=== PATIENT | male | born 1975 | race African-American/Black ===

== ENCOUNTER 2016-08-12 06:35 | Emergency (ER) | payer OTHER ==
[~2016-08-12] VITALS: Ht 180.3 cm; Wt 98.2 kg
[~2016-08-12 06:35] MED LIST: AMITRIPTYLINE H10 MG PO; ATARAX,VISTARIL25 MG PO; AZITHROMYCIN250 MG1 PO; BACTRIM,SEPT1 TABLET PO; COUMADIN; COUMADIN,JANTOVE5 MG PO; Combivent IH; Cymbalta PO; Dilaudid PO; ENDOCET; ENDOCET 5-3251 EACH PO; FOLIC ACID; FOLIC ACID1 MG PO; HABITROL,NICODER7 MG TD; HYDROMORPHONE HC2 MG; Habitrol,Nicoderm CQ TD; LEVOFLOXACIN750 MG; Levaquin PO; MOTRIN800 MG PO; Motrin PO; NOHOMEMEDS; OPANA ER20 MG; OPANA ER40 MG PO; OXYCODONE HCL15 MG PO; OXYCODONE-ACET1 EACH; OXYMORPHONE HCL40 MG PO; PERCOCET; PERCOCET 5/31 TABLET PO; PRAMOSONE 1%28.4 G1 TP; PROVENTIL,2.5 MG/3 M IH; PROVENTIL,200 INHALA; PULMICORT0.5 MG/21 IH; PULMOZYME2.5 MG/2.5 IH; Proventil,Ventolin H IH; Tylenol Regular Stre PO; ULTRAM
[2016-08-12] MEDS ORDERED: VIBRAMYCIN100 MG PO (06:55)
[2016-08-12 07:14] VITALS: BP 120/81
== END 2016-08-12 07:21 | disposition home or self-care (01) ==
LOC: EME 06:35
DX: S00.01XA Abrasion of scalp, initial encounter (principal); I88.9 Nonspecific lymphadenitis, unspecified; D57.1 Sickle-cell disease without crisis; Z86.711 Personal history of pulmonary embolism; F17.200 Nicotine dependence, unspecified, uncomplicated
CPT/HCPCS: 99281; 99283

== ENCOUNTER 2016-09-10 10:23 | Emergency (ER) | payer OTHER ==
[~2016-09-10] VITALS: Ht 181.6 cm; Wt 98.3 kg
[~2016-09-10 10:23] MED LIST changes: +VIBRAMYCIN100 MG PO
[2016-09-10 12:49] VITALS: BP 112/68
== END 2016-09-10 12:50 | disposition home or self-care (01) ==
LOC: EME 10:23
DX: D57.1 Sickle-cell disease without crisis (principal); N48.32 Priapism due to disease classified elsewhere; G89.29 Other chronic pain; Z86.711 Personal history of pulmonary embolism; F17.200 Nicotine dependence, unspecified, uncomplicated
CPT/HCPCS: 99281; 99284; J3010

== ENCOUNTER 2016-09-20 11:11 | Emergency (ER) | payer OTHER ==
[~2016-09-20] VITALS: Ht 180.3 cm; Wt 97.4 kg
[2016-09-20 11:40] VITALS: BP 133/83
== END 2016-09-20 13:04 | disposition home or self-care (01) ==
LOC: EME 11:11
DX: D57.1 Sickle-cell disease without crisis (principal); N48.32 Priapism due to disease classified elsewhere; G89.29 Other chronic pain; Z86.711 Personal history of pulmonary embolism; F17.200 Nicotine dependence, unspecified, uncomplicated
CPT/HCPCS: 99281; 99284; J1170

== ENCOUNTER 2016-09-22 13:20 | Emergency (ER) | payer OTHER ==
[~2016-09-22] VITALS: Ht 180.3 cm; Wt 99.2 kg
[2016-09-22 16:31] VITALS: BP 134/92
== END 2016-09-22 16:32 | disposition home or self-care (01) ==
LOC: EME 13:20
DX: D57.1 Sickle-cell disease without crisis (principal); N48.32 Priapism due to disease classified elsewhere; G89.29 Other chronic pain; Z86.711 Personal history of pulmonary embolism; F17.200 Nicotine dependence, unspecified, uncomplicated
CPT/HCPCS: 99281; 99284; J1170

== ENCOUNTER 2016-09-28 07:49 | Emergency (ER) | payer OTHER ==
[~2016-09-28] VITALS: Ht 180.3 cm; Wt 99.1 kg
[2016-09-28] MEDS ORDERED: OXYCODONE HCL30 MG PO (08:35)
[2016-09-28 09:47] VITALS: BP 132/82
== END 2016-09-28 09:40 | disposition home or self-care (01) ==
LOC: EME 07:49
DX: D57.00 Hb-SS disease with crisis, unspecified (principal); N48.32 Priapism due to disease classified elsewhere; G89.29 Other chronic pain; F17.200 Nicotine dependence, unspecified, uncomplicated; Z71.6 Tobacco abuse counseling; Z79.01 Long term (current) use of anticoagulants; Z88.6 Allergy status to analgesic agent
CPT/HCPCS: 99281; 99283; J1170

== ENCOUNTER 2016-10-20 12:41 | Emergency (ER) | payer OTHER ==
[~2016-10-20] VITALS: Ht 180.3 cm; Wt 98.2 kg
[~2016-10-20 12:41] MED LIST changes: +OXYCODONE HCL30 MG PO
[2016-10-20 14:51] VITALS: BP 130/80
== END 2016-10-20 14:52 | disposition home or self-care (01) ==
LOC: EME 12:41
DX: D57.1 Sickle-cell disease without crisis (principal); N48.32 Priapism due to disease classified elsewhere; G89.29 Other chronic pain; Z79.891 Long term (current) use of opiate analgesic; Z86.711 Personal history of pulmonary embolism; F17.200 Nicotine dependence, unspecified, uncomplicated
CPT/HCPCS: 99281; 99284; J1170

== ENCOUNTER 2016-10-30 06:11 | Emergency (ER) | payer OTHER ==
[~2016-10-30] VITALS: Ht 180.3 cm; Wt 98.9 kg
[2016-10-30 07:29] VITALS: BP 130/85
== END 2016-10-30 07:30 | disposition home or self-care (01) ==
LOC: EME 06:11
DX: D57.1 Sickle-cell disease without crisis (principal); N48.32 Priapism due to disease classified elsewhere; Z86.711 Personal history of pulmonary embolism; F17.200 Nicotine dependence, unspecified, uncomplicated
CPT/HCPCS: 99281; 99284; J1170

== ENCOUNTER 2016-11-06 07:27 | Emergency (ER) | payer OTHER ==
[~2016-11-06] VITALS: Ht 180.3 cm; Wt 97.2 kg
[2016-11-06 08:58] VITALS: BP 131/87
== END 2016-11-06 09:03 | disposition home or self-care (01) ==
LOC: EME 07:27
DX: D57.1 Sickle-cell disease without crisis (principal); N48.32 Priapism due to disease classified elsewhere; Z86.711 Personal history of pulmonary embolism; F17.200 Nicotine dependence, unspecified, uncomplicated
CPT/HCPCS: 99281; 99283; J1170

== ENCOUNTER 2016-11-07 06:03 | Emergency (ER) | payer OTHER ==
[~2016-11-07] VITALS: Ht 180.3 cm; Wt 98.2 kg
[2016-11-07 08:10] VITALS: BP 135/77
== END 2016-11-07 08:11 | disposition home or self-care (01) ==
LOC: EME 06:03
PROC: 3E0N3GC Introduction of Other Therapeutic Substance into Male Reproductive, Percutaneous Approach (ICD-10-PCS; principal; 2016-11-07)
DX: N48.30 Priapism, unspecified (principal); D57.00 Hb-SS disease with crisis, unspecified; Z90.49 Acquired absence of other specified parts of digestive tract; Z86.711 Personal history of pulmonary embolism; F17.200 Nicotine dependence, unspecified, uncomplicated
CPT/HCPCS: 99281; 99283; J1170

== ENCOUNTER 2016-11-16 14:16 | Emergency (ER) | payer OTHER ==
[~2016-11-16] VITALS: Ht 180.3 cm; Wt 96.4 kg
[2016-11-16 15:03] LABS: BASOPHIL COUNT 0.1 K/uL (0-0.1); EOSINOPHIL (%) 4.8 % (0-5); EOSINOPHIL COUNT 0.6 K/uL (0-0.3); HEMATOCRIT 35.1 % (38.0-50.0); IMM.RETIC FRACTION 30.1 % (3-19); IMMATURE GRANULOCYTE (%) 0.5 % (0.0-0.7); IMMATURE GRANULOCYTE COUNT 0.1 K/uL; INSTRUMENT ABS NEUTROPHIL CT 6.7 K/uL; LYMPHOCYTE COUNT 2.5 K/uL (1.0-2.8); MCHC 38.2 G/DL (30.0-36.0); MCV 86.5 FL (86-99); MEAN PLAT.VOLUME 9.4 uM^3 (9.0-12.4); MONOCYTE (%) 16.3 % (3-12); NEUTROPHIL (%) 56.4 % (45-76); NEUTROPHIL COUNT 6.7 K/uL (1.8-6.4); NRBC (%) 0.8 /100 WBC (0-0); PLATELET COUNT 346 K/uL (156-360); RBC DIS.WIDTH-CV 13.5 % (11.8-14.6); RBC DIS.WIDTH-SD 42.5 % (39-53); RED BLOOD COUNT 4.06 M/uL (4.00-5.50); RETIC HGB EQUIVALENT 36.2 (28-36); RETICULOCYTE COUNT 4.1 % (0.5-1.8); WHITE BLOOD COUNT 11.9 K/uL (4.1-10.2)
[2016-11-16 16:24] VITALS: BP 116/74
== END 2016-11-16 16:25 | disposition home or self-care (01) ==
LOC: EME 14:16
PROVIDERS: Physician Assistant
DX: D57.00 Hb-SS disease with crisis, unspecified (principal); N48.32 Priapism due to disease classified elsewhere; F17.200 Nicotine dependence, unspecified, uncomplicated
CPT/HCPCS: 85025; 85045; 99281; 99284; J1170

== ENCOUNTER 2016-11-27 05:19 | Emergency (ER) | payer OTHER ==
[~2016-11-27] VITALS: Ht 180.3 cm; Wt 98.3 kg
[2016-11-27 07:49] VITALS: BP 140/83
== END 2016-11-27 07:50 | disposition home or self-care (01) ==
LOC: EME 05:19
PROC: 0V9SXZZ Drainage of Penis, External Approach (ICD-10-PCS; principal; 2016-11-27)
DX: D57.1 Sickle-cell disease without crisis (principal); N48.32 Priapism due to disease classified elsewhere; F17.200 Nicotine dependence, unspecified, uncomplicated; Z90.49 Acquired absence of other specified parts of digestive tract
CPT/HCPCS: 99281; 99284; J1170

== ENCOUNTER 2016-12-03 10:10 | Emergency (ER) | payer OTHER ==
[~2016-12-03] VITALS: Ht 180.3 cm; Wt 96.9 kg
[2016-12-03 11:49] LABS: CHLORIDE 106 mEq/L (99-109); POTASSIUM 4.1 mEq/L (3.7-5.4); SODIUM 135 mEq/L (136-147)
[2016-12-03 11:52] LABS: GLUCOSE 145 mg/dL (70-99)
[2016-12-03 11:53] LABS: ANION GAP 6 MEQ/L (2-14); TOTAL BILIRUBIN 1.5 mg/dL (0.0-1.0)
[2016-12-03 11:55] LABS: ALKALINE PHOSPHATASE 70 IU/L (3-129); GFR ESTIMATE (CALCULATED) > 59 mL/min/
[2016-12-03 11:56] LABS: UREA NITROGEN (BUN) 6 mg/dL (9-23)
[2016-12-03] MEDS ORDERED: IBUPROFEN800 MG PO (12:20)
[2016-12-03 12:28] LABS: HEMATOCRIT 33.8 % (38.0-50.0); MCH 33.3 PG (29.0-34.0); MCHC 38.2 G/DL (30.0-36.0); MCV 87.3 FL (86-99); MEAN PLAT.VOLUME 9.5 uM^3 (9.0-12.4); NRBC (%) 1.1 /100 WBC (0-0); PLATELET COUNT 449 K/uL (156-360); RBC DIS.WIDTH-CV 13.6 % (11.8-14.6); RBC DIS.WIDTH-SD 42.5 % (39-53); RED BLOOD COUNT 3.87 M/uL (4.00-5.50); WHITE BLOOD COUNT 12.5 K/uL (4.1-10.2)
[2016-12-03 13:00] VITALS: BP 117/68
[2016-12-03 13:18] LABS: IMM.RETIC FRACTION 33.8 % (3-19); RETIC HGB EQUIVALENT 34.4 (28-36)
[2016-12-03 13:31] LABS: RETICULOCYTE COUNT 5.6 % (0.5-1.8)
== END 2016-12-03 13:01 | disposition home or self-care (01) ==
LOC: EME 10:10
PROVIDERS: Emergency Medicine
DX: D57.1 Sickle-cell disease without crisis (principal); N48.32 Priapism due to disease classified elsewhere; F17.200 Nicotine dependence, unspecified, uncomplicated; Z90.49 Acquired absence of other specified parts of digestive tract
CPT/HCPCS: 80053; 85027; 85045; 99281; 99284; J1170; J7030

== ENCOUNTER 2016-12-14 17:19 | Emergency (ER) | payer OTHER ==
[~2016-12-14] VITALS: Ht 181.6 cm; Wt 96.8 kg
[~2016-12-14 17:19] MED LIST changes: +IBUPROFEN800 MG PO
[2016-12-14 19:25] VITALS: BP 129/98
== END 2016-12-14 19:26 | disposition home or self-care (01) ==
LOC: EME 17:19
DX: D57.00 Hb-SS disease with crisis, unspecified (principal); N48.32 Priapism due to disease classified elsewhere; F17.200 Nicotine dependence, unspecified, uncomplicated; Z88.5 Allergy status to narcotic agent
CPT/HCPCS: 99281; 99283; J1170

== ENCOUNTER 2017-01-15 10:24 | Emergency (ER) | payer OTHER ==
[~2017-01-15] VITALS: Ht 180.3 cm; Wt 97.2 kg
[2017-01-15 12:38] VITALS: BP 104/77
== END 2017-01-15 12:38 | disposition home or self-care (01) ==
LOC: EME 10:24
PROC: 3E0N3GC Introduction of Other Therapeutic Substance into Male Reproductive, Percutaneous Approach (ICD-10-PCS; principal; 2017-01-15)
DX: D57.1 Sickle-cell disease without crisis (principal); N48.32 Priapism due to disease classified elsewhere; Z86.711 Personal history of pulmonary embolism; Z90.49 Acquired absence of other specified parts of digestive tract; F17.200 Nicotine dependence, unspecified, uncomplicated
CPT/HCPCS: 99281; 99283; J1170

== ENCOUNTER 2017-01-27 06:12 | Emergency (ER) | payer OTHER ==
[~2017-01-27] VITALS: Ht 180.3 cm; Wt 96.1 kg
[2017-01-27] MEDS ORDERED: ATARAX,VISTARIL50 MG PO (06:31)
[2017-01-27] MEDS ORDERED: VIBRAMYCIN100 MG PO (06:31)
[2017-01-27 06:52] VITALS: BP 121/84
== END 2017-01-27 06:52 | disposition home or self-care (01) ==
LOC: EME 06:12
DX: L73.9 Follicular disorder, unspecified (principal); R59.1 Generalized enlarged lymph nodes; D57.1 Sickle-cell disease without crisis; F17.200 Nicotine dependence, unspecified, uncomplicated
CPT/HCPCS: 99281; 99283

== ENCOUNTER 2017-03-14 09:24 | Emergency (ER) | payer OTHER ==
[~2017-03-14] VITALS: Ht 180.3 cm; Wt 98.9 kg
[~2017-03-14 09:24] MED LIST changes: +ATARAX,VISTARIL50 MG PO
[2017-03-14 09:37] VITALS: BP 125/78
[2017-03-14 10:20] LABS: CHLORIDE 110 mEq/L (99-109); POTASSIUM 3.7 mEq/L (3.7-5.4); SODIUM 141 mEq/L (136-147)
[2017-03-14 10:21] LABS: MAGNESIUM 1.9 mg/dL (1.3-2.7)
[2017-03-14 10:22] LABS: GLUCOSE 119 mg/dL (70-99)
[2017-03-14 10:24] LABS: ANION GAP 10 MEQ/L (2-14)
[2017-03-14 10:26] LABS: GFR ESTIMATE (CALCULATED) > 59 mL/min/
[2017-03-14 10:27] LABS: UREA NITROGEN (BUN) 6 mg/dL (9-23)
[2017-03-14 11:02] LABS: BASOPHIL COUNT 0.1 K/uL (0-0.1); EOSINOPHIL (%) 7.6 % (0-5); EOSINOPHIL COUNT 0.9 K/uL (0-0.3); HEMATOCRIT 35.2 % (38.0-50.0); IMMATURE GRANULOCYTE (%) 0.5 % (0.0-0.7); IMMATURE GRANULOCYTE COUNT 0.1 K/uL; INSTRUMENT ABS NEUTROPHIL CT 5.3 K/uL; LYMPHOCYTE COUNT 2.8 K/uL (1.0-2.8); MCHC 38.1 G/DL (30.0-36.0); MCV 86.7 FL (86-99); MEAN PLAT.VOLUME 11.1 uM^3 (9.0-12.4); MONOCYTE COUNT 2.1 K/uL (0-0.8); NEUTROPHIL COUNT 5.3 K/uL (1.8-6.4); NRBC (%) 0.7 /100 WBC (0-0); PLATELET COUNT 278 K/uL (156-360); RBC DIS.WIDTH-CV 13.4 % (11.8-14.6); RBC DIS.WIDTH-SD 42.2 % (39-53); RED BLOOD COUNT 4.06 M/uL (4.00-5.50); WHITE BLOOD COUNT 11.3 K/uL (4.1-10.2)
== END 2017-03-14 11:18 | disposition left against medical advice (07) ==
LOC: EME 09:24
PROVIDERS: Emergency Medicine
DX: D57.1 Sickle-cell disease without crisis (principal); N48.32 Priapism due to disease classified elsewhere; Z86.711 Personal history of pulmonary embolism; F17.200 Nicotine dependence, unspecified, uncomplicated
CPT/HCPCS: 80048; 83735; 85025; J7030

== ENCOUNTER 2017-03-27 12:01 | Emergency (ER) | payer OTHER ==
[~2017-03-27] VITALS: Ht 180.3 cm; Wt 96.4 kg
[2017-03-27 14:12] VITALS: BP 151/90
== END 2017-03-27 14:13 | disposition home or self-care (01) ==
LOC: EME 12:01
DX: D57.1 Sickle-cell disease without crisis (principal); N48.32 Priapism due to disease classified elsewhere; F17.200 Nicotine dependence, unspecified, uncomplicated; Z71.6 Tobacco abuse counseling; G89.29 Other chronic pain; Z79.891 Long term (current) use of opiate analgesic
CPT/HCPCS: 99281; 99284; J1170

== ENCOUNTER 2017-07-02 07:58 | Emergency (ER) | payer OTHER ==
[~2017-07-02] VITALS: Ht 180.3 cm; Wt 98.7 kg
[2017-07-02] MEDS ORDERED: NAPROSYN500 MG PO (09:28)
[2017-07-02 10:08] VITALS: BP 116/76
== END 2017-07-02 10:08 | disposition home or self-care (01) ==
LOC: EME 07:58
DX: M25.561 Pain in right knee (principal); D57.1 Sickle-cell disease without crisis; Z88.5 Allergy status to narcotic agent; Z88.8 Allergy status to other drugs, medicaments and biological substances
CPT/HCPCS: 73564; 99281; 99283

== ENCOUNTER 2017-08-27 13:57 | Emergency (ER) | payer OTHER ==
[~2017-08-27] VITALS: Ht 180.3 cm; Wt 96.9 kg
[~2017-08-27 13:57] MED LIST changes: +NAPROSYN500 MG PO
[2017-08-27 14:14] VITALS: BP 129/83
[2017-08-27] MEDS ORDERED: CLEOCIN300 MG PO (14:56)
== END 2017-08-27 15:20 | disposition home or self-care (01) ==
LOC: EME 13:57
DX: L02.214 Cutaneous abscess of groin (principal); L73.9 Follicular disorder, unspecified; Z88.5 Allergy status to narcotic agent
CPT/HCPCS: 99281; 99284

== ENCOUNTER → 2017-09-21 12:25 | Emergency (ER) | payer OTHER ==
[~2017-09-21] VITALS: Ht 180.3 cm; Wt 97.9 kg
[~2017-09-21 12:25] MED LIST changes: +CLEOCIN300 MG PO
[2017-09-21 12:57] VITALS: BP 121/97
== END | disposition left against medical advice (07) ==
LOC: EME 12:25
DX: N48.30 Priapism, unspecified (principal); D57.1 Sickle-cell disease without crisis; Z53.21 Procedure and treatment not carried out due to patient leaving prior to being seen by health care provider

== ENCOUNTER 2017-10-12 14:03 | Emergency (ER) | payer OTHER ==
[~2017-10-12] VITALS: Ht 180.3 cm; Wt 98.2 kg
[2017-10-12 17:29] VITALS: BP 124/74
== END 2017-10-12 17:29 | disposition home or self-care (01) ==
LOC: EME 14:03
DX: D57.1 Sickle-cell disease without crisis (principal); N48.32 Priapism due to disease classified elsewhere; J44.9 Chronic obstructive pulmonary disease, unspecified; F17.200 Nicotine dependence, unspecified, uncomplicated; Z86.711 Personal history of pulmonary embolism; Z88.5 Allergy status to narcotic agent
CPT/HCPCS: 99281; 99284

== ENCOUNTER 2017-10-23 07:52 | Emergency (ER) | payer OTHER ==
[~2017-10-23] VITALS: Ht 180.3 cm; Wt 98.3 kg
[2017-10-23 09:54] VITALS: BP 107/74
== END 2017-10-23 09:55 | disposition home or self-care (01) ==
LOC: EME 07:52
DX: D57.1 Sickle-cell disease without crisis (principal); N48.32 Priapism due to disease classified elsewhere; Z86.711 Personal history of pulmonary embolism; Z88.5 Allergy status to narcotic agent; F17.200 Nicotine dependence, unspecified, uncomplicated
CPT/HCPCS: 99281; 99284; J1170

== ENCOUNTER 2017-10-25 08:05 | Emergency (ER) | payer OTHER ==
[~2017-10-25] VITALS: Ht 180.3 cm; Wt 96.3 kg
[2017-10-25 09:19] VITALS: BP 124/79
== END 2017-10-25 09:19 | disposition home or self-care (01) ==
LOC: EME 08:05
PROC: 0V9SXZZ Drainage of Penis, External Approach (ICD-10-PCS; principal; 2017-10-25)
DX: N48.30 Priapism, unspecified (principal); D57.1 Sickle-cell disease without crisis; Z86.711 Personal history of pulmonary embolism; Z90.49 Acquired absence of other specified parts of digestive tract; F17.200 Nicotine dependence, unspecified, uncomplicated
CPT/HCPCS: 99281; 99284; J1170

== ENCOUNTER 2017-10-26 12:38 | Emergency (ER) | payer OTHER ==
[~2017-10-26] VITALS: Ht 180.3 cm; Wt 98.7 kg
[2017-10-26 15:44] VITALS: BP 124/77
== END 2017-10-26 15:46 | disposition home or self-care (01) ==
LOC: EME 12:38
PROC: 0V9SXZZ Drainage of Penis, External Approach (ICD-10-PCS; principal; 2017-10-26)
DX: N48.32 Priapism due to disease classified elsewhere (principal); D57.1 Sickle-cell disease without crisis; Z86.711 Personal history of pulmonary embolism; F17.200 Nicotine dependence, unspecified, uncomplicated
CPT/HCPCS: 99281; 99283; J1170

== ENCOUNTER 2017-10-29 10:30 | Emergency (ER) | payer OTHER ==
[~2017-10-29] VITALS: Ht 180.3 cm; Wt 97.9 kg
[2017-10-29 14:14] VITALS: BP 124/78
== END 2017-10-29 14:16 | disposition home or self-care (01) ==
LOC: EME 10:30
PROC: 0V9SXZZ Drainage of Penis, External Approach (ICD-10-PCS; principal; 2017-10-29)
DX: N48.30 Priapism, unspecified (principal); D57.1 Sickle-cell disease without crisis; Z79.891 Long term (current) use of opiate analgesic; F17.200 Nicotine dependence, unspecified, uncomplicated; Z88.5 Allergy status to narcotic agent; Z86.711 Personal history of pulmonary embolism
CPT/HCPCS: 99281; 99283; J1170